=== PATIENT | female | born 1955 | race Caucasian/White ===

== ENCOUNTER → 2023-05-25 13:11 | Outpatient (CLI) | payer MEDICARE, SELFPAY ==
--- NOTE | 2023-05-25 | DI.US.S_ITS ---
PROCEDURE: US ABDOMEN COMPLETE INDICATIONS: Generalized abdominal pain TECHNIQUE: Real-time scanning was performed of the abdominal and retroperitoneal organs, with image documentation. COMPARISON: None. FINDINGS: Liver: Liver is normal in size and homogeneous in echotexture. Gallbladder: Sonolucent without evidence cholelithiasis, gallbladder wall thickening or pericholecystic fluid. No sonographic Glaser sign. Biliary ducts: Intrahepatic bile ducts are non-dilated. Extrahepatic bile duct caliber measures 8.5 mm. Normal is 6-7 mm or less in diameter, or 10 mm or less post-cholecystectomy. Pancreas: Visualized portions of the pancreas are sonographically normal. Spleen: Spleen is normal in size and homogeneous in echotexture. Kidneys: Kidneys are normal in size and echotexture. Right kidney measures 10.6 cm long; left kidney measures 9.1 cm long. No hydronephrosis or nephrolithiasis. No solid masses. Aorta: Visualized aorta is normal in caliber at less than 3 cm. Iliacs: Proximal common iliac arteries are normal in caliber at less than 2.5 cm. IVC: Intrahepatic inferior vena cava is patent. Miscellaneous: No free abdominal fluid. IMPRESSION: Slightly prominent common bile duct, 8.5 mm. Consider follow-up MRCP if clinically relevant. Approved by: Cleveland Carreno M.D. on 05/25/2023 at 17:54
== END ==
PROVIDERS: PCP Family Medicine; Referring Provider Family Medicine; Visit Provider Family Medicine
DX: K52.9 Noninfective gastroenteritis and colitis, unspecified (principal); R10.84 Generalized abdominal pain; R14.0 Abdominal distension (gaseous); R19.4 Change in bowel habit; R11.0 Nausea; R53.83 Other fatigue
CPT/HCPCS: 76700

== ENCOUNTER → 2023-07-12 10:45 | Outpatient (CLI) | payer MEDICARE, SELFPAY ==
--- NOTE | 2023-07-12 | DI.MRI.S_ITS ---
PROCEDURE: MR AB PANCREATIC/MRCP PROTOCOL INDICATIONS: Radiculopathy, lumbar region;Abnormal US TECHNIQUE: Coronal HASTE through the abdomen, axial 2-D FLASH in- and [id number], and breath-hold T2 FSE with fat saturation through the biliary system and pancreas. Oblique coronal and axial thin-slice HASTE, radial thick-slab HASTE centered on the extrahepatic bile ducts. Intravenous secretin: Not requested. COMPARISON: None. FINDINGS: Image quality: Excellent. Pancreas and biliary system: Normal gallbladder without stones or wall thickening. No intrahepatic biliary dilatation. The common bile duct is normal caliber at 6 mm. It tapers distally. The pancreas is normal in size and signal. Classic ductal anatomy. There is a unilocular 6 mm cyst in the anterior body of the pancreas without connection to the pancreatic duct. Other solid organs: The liver is normal in size without steatosis. Occasional simple cysts are present. Normal adrenal glands, spleen, and kidneys. Nodes and vessels: No retroperitoneal or mesenteric adenopathy by size criteria. Aorta and inferior vena cava are normal in size. Bowel and peritoneum: Unenhanced bowel loops are normal in caliber. No free fluid. Lung bases: No basal pleural effusions. Heart size is normal. Bones and soft tissues: No ventral hernias. Bone marrow is of normal overall signal. IMPRESSION: No evidence of biliary dilatation. Incidental note of unilocular 6 mm pancreatic cyst, presumably benign. 1 year follow-up is recommended. Dictated by: Debbie Hubbard M.D. on 07/12/2023 at 17:48 Approved by: Debbie Hubbard M.D. on 07/12/2023 at 17:57
--- NOTE | 2023-07-12 | DI.MRI.S_ITS ---
PROCEDURE: MR LUMBAR SPINE WO CON INDICATIONS: Radiculopathy, lumbar region;Abnormal US TECHNIQUE: Noncontrast sagittal T1 spin echo and T2 fast echo, sagittal STIR, and T2 fast spin echo through the lumbar spine. In cases with scoliosis, additional coronal T2 fast spin echo may be performed. COMPARISON: [facility], MR, MR AB PANCREATIC/MRCP PROTOCOL, 07/12/2023, 12:38. FINDINGS: Image quality: This examination is limited by involuntary motion artifact. Alignment and Curvature: Moderate dextroconvex thoracolumbar scoliosis is seen. No focal AP alignment abnormality is seen. Bone Marrow: Marrow is of normal overall signal. No acute vertebral body compression fractures. Spinal Cord: Conus medullaris terminates at the L1 level. Visualized cord demonstrates normal signal and size. Paraspinous Soft Tissues: No paravertebral masses. There is transitional lumbar anatomy, with the L5 level partially sacralized on the right. T12-L1: Mild loss of disc height is seen. Loss of disc signal is seen. Reactive marrow endplate changes are seen posteriorly, which are hyperintense on T1-weighted and T2-weighted imaging and most consistent with fatty metaplasia (Modic type II changes). Mild generalized disc bulge is seen. There is mild left-sided and moderate right-sided neural foraminal narrowing. No central canal narrowing is seen. L1-L2: Moderate loss of disc height is seen. Loss of disc signal is seen. Mild to moderate disc bulge is seen, which is eccentric to the right. No significant neural foraminal or central canal narrowing can be seen. L2-L3: Moderate loss of disc height is seen. Loss of disc signal is seen. Mild to moderate disc bulge is seen. Macrophage mild facet No significant neural foraminal or central canal narrowing can be seen. L3-L4: The disc height is well-preserved. Loss of disc signal is seen at this level. Mild to moderate disc bulge is seen. Mild facet joint hypertrophy is seen. There is [id number] right-sided and moderate left-sided neural foraminal narrowing. No significant central canal narrowing is seen. L4-L5: The disc height is well-preserved. Loss of disc signal is seen at this level. Mild to moderate disc bulge is seen, which is eccentric to the right, with a right foraminal disc protrusion. Moderate facet joint hypertrophy is seen. There is moderate right-sided and minimal left-sided neural foraminal narrowing. Minimal central canal narrowing is seen. L5-S1: The disc height and disk signal are relatively well-preserved. Moderate disc bulge is seen, which is eccentric to the right. Mild facet joint hypertrophy is seen. No significant neural foraminal or central canal narrowing can be seen. IMPRESSION: Moderate scoliosis. Multiple levels of underlying lumbar spine degenerative change can be seen. Dictated by: Kd Wooten M.D. on 07/12/2023 at 19:48 Approved by: Kd Wooten M.D. on 07/12/2023 at 19:53
== END ==
PROVIDERS: PCP Family Medicine; Referring Provider Family Medicine; Visit Provider Family Medicine
DX: M47.26 Other spondylosis with radiculopathy, lumbar region (principal); M47.27 Other spondylosis with radiculopathy, lumbosacral region; M51.16 Intervertebral disc disorders with radiculopathy, lumbar region; M41.9 Scoliosis, unspecified; M48.56XS Collapsed vertebra, not elsewhere classified, lumbar region, sequela of fracture; K86.2 Cyst of pancreas; R93.2 Abnormal findings on diagnostic imaging of liver and biliary tract
CPT/HCPCS: 72148; 74183; A9579

== ENCOUNTER 2023-10-12 14:17 | Outpatient (CLI) | payer MEDICARE, SELFPAY ==
[2023-10-12 15:00] VITALS: BP 149/77; PULSE 86; RESP 18; TEMP 36.4; O2SAT 99
--- NOTE | 2023-10-12 15:00 | DI.RAD.S_ITS ---
PROCEDURE: PAIN SI JOINT INJECTION INDICATIONS: SI joint dysfunction COMPARISON: None. FINDINGS: Fluoroscopic spot filming was performed to verify placement of spinal needles at the right sacroiliac joint level(s), as labeled on the films. Appropriate location(s) of the needle tip(s) was confirmed by injection of iodinated contrast. IMPRESSION: Fluoroscopic guidance utilized for a right sacroiliac joint injection. Dictated by: Miguelito Logan M.D. on 10/12/2023 at 16:54 Approved by: Miguelito Logan M.D. on 10/12/2023 at 16:54
[2023-10-12 15:19] VITALS: BP 148/73; PULSE 77; RESP 12; O2SAT 99
[2023-10-12] MEDS: DEXAMETHASONE 10 MG/ML VIAL INJ (15:20)
[2023-10-12] MEDS: iopamidoL 15 ML VIAL 3 ML INJ (15:20)
[2023-10-12] MEDS: BUPIVACAINE 0.5% (PF) 10 ML VIAL 5 ML INJ (15:20)
[2023-10-12 15:24] VITALS: BP 149/78; PULSE 74; RESP 13; O2SAT 99
[2023-10-12 15:30] VITALS: BP 139/75; PULSE 89; RESP 18; O2SAT 96
--- NOTE | 2023-10-12 15:58 | P.PCN_ITS ---
Date/Time/Diagnoses Date of procedure: 10/12/23 Time of procedure: 15:00 Procedure Notes Physician: Leobardo Landeros Total Fluoroscopy time (seconds): 11 Total sedation minutes: 0 Procedure in detail & Post-procedure care: Right Sacroiliac Joint Injection Indications: Lynn is presenting for treatment of SI joint dysfunction with low back/buttock pain. Preoperative diagnosis: Right SI joint dysfunction Postoperative diagnosis: Same Focused Examination: Ax3 Mood and affect are normal Vital Signs: VSS Consent: Following review of allergies and potential side effects/complications, including, but not necessarily limited to, infection, allergic reaction, local tissue breakdown, stroke, temporary or permanent nerve injury, paralysis, and possible , the patient indicated that they understood and agreed to proceed.? An informed consent document was signed by the patient, witnessed by a nurse and placed in the patient's chart.? Additionally, other treatment options including medications and physical therapy were reviewed with the patient. All questions were answered. Site was then marked. Anesthesia: Local Position: Prone Monitoring: NIBP, Pulse oximetry, 3 lead EKG Needle used: 22 ga, 3.5 inch spinal Contrast: 2 mL Isovue M-300 Injectate: Dexamethasone 7.5 mg with 1% lidocaine 2 mL Technique: The skin was prepped with chloraprep and then draped in a sterile fashion. Time out was performed as per protocol. Oxygen applied via NC. Skin and subcutaneous structures of the needle entry site was then infiltrated with 5 mL of lidocaine 1%. Under AP and lateral fluoroscopic control, the spinal needle was guided into the right sacroiliac joint. 1 mL contrast was injected and was consistent with intra-articular placement. There was no evidence for intravascular uptake. After negative aspiration, the above-mentioned injectate was then slowly administered and the needle withdrawn. The patient expressed no unusual discomfort or paresthesias during the injection. EBL: less than 1 ml Complications: None Post Procedure: Patient was taken to the recovery and monitored. The patient was provided a Pain Log to continue to record the patient's response to the target- specific procedure prior to the patient's follow-up visit with the referring physician. Patient was stable upon discharge. Detailed post procedure instructions were provided. Patient was asked to call in the event of worsening pain, fever, weakness, numbness or bladder or bowel incontinence.
== END 2023-10-12 15:40 | disposition home or self-care (01) ==
LOC: RAD 14:17
PROVIDERS: PCP Family Medicine; Referring Provider Anesthesiology; Visit Provider Anesthesiology
DX: M53.3 Sacrococcygeal disorders, not elsewhere classified (principal)
CPT/HCPCS: 27096; 77002; G0260; J1100

== ENCOUNTER → 2023-10-20 11:40 | Outpatient (CLI) | payer MEDICARE, SELFPAY ==
--- NOTE | 2023-10-20 11:42 | DI.RAD.S_ITS ---
PROCEDURE: XR CERVICAL SPINE 4V OR 5V INDICATIONS: Neck pain TECHNIQUE: 5 views of the cervical spine acquired. COMPARISON: None. FINDINGS: Bones: No fractures or dislocations to the C7 level. Straightening of normal cervical lordosis. There are multilevel degenerative changes of the cervical spine with facet and uncovertebral arthropathy, disc height loss with degenerative endplate changes and spurring. This is most pronounced at C5-C6 and C6-C7. Oblique images demonstrate bony foraminal stenoses, most pronounced within the right mid and lower cervical spine. Soft tissues: No prevertebral soft tissue swelling. IMPRESSION: Multilevel degenerative changes of the cervical spine, most pronounced at C5-C6 and C6-C7. Dictated by: Be Askew M.D. on 10/20/2023 at 13:12 Approved by: Be Askew M.D. on 10/20/2023 at 13:13
== END ==
PROVIDERS: PCP Family Medicine; Referring Provider Anesthesiology; Visit Provider Anesthesiology
DX: M47.812 Spondylosis without myelopathy or radiculopathy, cervical region (principal); M51.16 Intervertebral disc disorders with radiculopathy, lumbar region; M41.26 Other idiopathic scoliosis, lumbar region; M53.3 Sacrococcygeal disorders, not elsewhere classified; M54.2 Cervicalgia; M79.18 Myalgia, other site
CPT/HCPCS: 20553; 72050; 76942; 99213